=== PATIENT | female | born 1990 | race Caucasian/White ===

== ENCOUNTER 2016-11-01 03:15 | Emergency (ER) | payer MEDICAID ==
[2016-11-01 03:27] VITALS: TEMP 98.4; O2SAT 98; BMI 40.8
[2016-11-01] MEDS ORDERED: Sodium Chloride 0.9% 1,000 ML IV STA (04:10)
--- NOTE | 2016-11-01 04:24 | ED PDOC ---
Arrival/HPI - General Chief Complaint: Back Pain Time Seen by Provider: 11/01/16 04:09 Historian: Patient - History of Present Illness Narrative History of Present Illness (Text): 11/01/16 04:19 Jessica Pinedo is a 25 year old female who presents to the emergency department complaining of 2 day duration of sore throat, cough and joint pains diffusely. Patient was evaluate by PMD, Dr. Harding, yesterday for these symptoms and was started on Augmentin. However, patient states that she developed lower back pain with radiation to b/l thigh more severely 2 hours prior to arrival although she has had this for the last 2 days as well. States she took Aleve at that time for minimal relief. Also informs of increased urinary frequency for past 3 days. Denies fever, chills, headache, dizziness, nausea, vomiting, diarrhea, abdominal pain, or any other complaitns at this time. Time/Duration: < week (2 days ) Symptom Onset: Gradual Severity Level: Mild Activities at Onset: Light Past Medical History - Provider Review Nursing Documentation Reviewed: Yes - Infectious Disease Hx of Infectious Diseases: None - Tetanus Immunization Tetanus Immunization: Unknown - Past Medical History Past Medical History: No Previous - Cardiac Hx Cardiac Disorders: No - Pulmonary Hx Respiratory Disorders: No - Neurological Hx Neurological Disorder: Yes Hx Migraine: Yes Hx Seizures: Yes - HEENT Hx HEENT Disorder: No - Renal Hx Renal Disorder: No - Endocrine/Metabolic Hx Endocrine Disorders: No - Hematological/Oncological Hx Blood Disorders: No - Integumentary Hx Dermatological Disorder: No - Musculoskeletal/Rheumatological Hx Musculoskeletal Disorders: No - Gastrointestinal Hx Gastrointestinal Disorders: Yes Hx Colitis: Yes Hx Crohn's Disease: Yes - Genitourinary/Gynecological Hx Genitourinary Disorders: Yes Other/Comment: PCOS - Psychiatric Hx Psychophysiologic Disorder: No Hx Substance Use: No - Surgical History Hx Section: Yes Hx Cholecystectomy: Yes (May 2008) Other/Comment: Craniotomy on October 21, 2005 - Anesthesia Hx Anesthesia: No - Suicidal Assessment Feels Threatened In Home Enviroment: No Family/Social History - Physician Review Nursing Documentation Reviewed: Yes Family/Social History: No Known Family HX Smoking Status: Never Smoked Hx Alcohol Use: No Hx Substance Use: No Hx Substance Use Treatment: No Allergies/Home Meds Allergies/Adverse Reactions: Allergies acetaminophen [From Percocet] Allergy (Verified 11/01/16 03:21) ANAPHYLAXIS codeine Allergy (Verified 11/01/16 03:21) ANAPHYLAXIS latex Allergy (Verified 11/01/16 03:21) ITCHING morphine Allergy (Verified 11/01/16 03:21) ANAPHYLAXIS oxycodone [From Percocet] Allergy (Verified 11/01/16 03:21) ANAPHYLAXIS Home Medications: Home Meds Medication Instructions Recorded Confirmed Amoxicillin/Clavulanate [Augmentin 1 tab PO BID 11/01/16 11/01/16 875 MG-125 MG] Dicyclomine [Bentyl] 10 mg PO QID 11/01/16 11/01/16 Ergocalciferol (Vitamin D2) 50,000 unit PO QWK 11/01/16 11/01/16 [Vitamin D2] Fluticasone Propionate [Flonase] 1 spr NS BID 11/01/16 11/01/16 Levocetirizine Dihydrochloride 5 mg PO HS 11/01/16 11/01/16 [Xyzal] Mesalamine ER Cap [Pentasa] 1,000 mg PO QID 11/01/16 11/01/16 Review of Systems - Physician Review All systems were reviewed & negative as marked: Yes - Review of Systems Constitutional: Normal. absent: Fatigue, Fevers ENT: Sore Throat Respiratory: Cough. absent: SOB, Sputum Cardiovascular: Normal. absent: Chest Pain, Palpitations Gastrointestinal: Normal. absent: Abdominal Pain, Diarrhea, Nausea, Vomiting Genitourinary Female: Frequency (increased frequency ) Musculoskeletal: Back Pain (lower back pain ), Other (joint pain ) Neurological: Normal. absent: Headache, Dizziness Psychiatric: Normal Physical Exam - Physical Exam Narrative Physical Exam (Text): Constitutional: No acute distress. Head: Normocephalic. Atraumatic. Eyes: PERRL. ENT: Moist mucous membranes. No pharyngeal erythema. no exudates Neck: Supple. No stiffness Cardiovascular: mild tachycardia. Chest: No tenderness. Respiratory: Clear to auscultation bilaterally. GI: Soft. Nontender. Nondistended. Back: No CVA tenderness. Musculoskeletal: No tenderness or swelling of extremities. FROM X 4. Skin: No rash. Neurologic: Alert, no focal deficit. Vital Signs Reviewed: Yes Vital Signs Temp Pulse Resp BP Pulse Ox 11/01/16 05:19 89 16 117/56 L 98 11/01/16 03:25 98.4 F 108 H 20 123/79 98 Temperature: Afebrile Blood Pressure: Normal Pulse: Tachycardic Respiratory Rate: Normal Appearance: Positive for: Well-Appearing, Non-Toxic, Comfortable Pain Distress: None Mental Status: Positive for: Alert and Oriented X 3 Medical Decision Making ED Course and Treatment: 11/01/16 04:27 Impression: A 25 year old female who presents to the emergency department complaining of sore throat discomfort, cough, joint pain and back pain. Pt evaluated by PMD and started on Augmentin Plan: -- Labs -- IV fluids -- Urine culture -- HCG -- Urinalysis -- Reassess and disposition Progress Notes: 11/01/16 05:26 On re-evaluation, patient feels better and is in no acute distress. HR improved to 88. I have discussed the results and plan with the patient, who expresses understanding. Patient in agreement with plan to be discharged home. Patient is stable for discharge. Patient was instructed to follow up with physician or return if symptoms worsen or new concerning symptoms arise. - Lab Interpretations Lab Results: 11/01/16 04:19 11/01/16 04:19 Lab Results 11/01/16 04:19: Urine Color Yellow, Urine Appearance Slight-cloudy, Urine pH 6.0 , Ur Specific [place] 1.025, Urine Protein Negative, Urine Glucose (UA) Negative , Urine Ketones Negative, Urine Blood Moderate H, Urine Nitrate Negative, Urine Bilirubin Negative, Urine Urobilinogen 1.0 H, Ur Leukocyte Esterase Negative, Urine RBC 5 - 10, Urine WBC 0 - 2, Ur Epithelial Cells 4 - 5, Urine Bacteria Few , Urine HCG, Qual Negative 11/01/16 04:19: Sodium 139, Potassium 3.8, Chloride 102, Carbon Dioxide 25, Anion Gap 16, BUN 13, Creatinine 0.6, Est GFR ( Amer) > 60, Est GFR (Non- Af Amer) > 60, Random Glucose 94, Calcium 9.2, Total Bilirubin 1.1, AST 26, ALT 47, Alkaline Phosphatase 100, Total Protein 7.3, Albumin 4.0, Globulin 3.3, Albumin/Globulin Ratio 1.2 11/01/16 04:19: WBC 10.3, RBC 4.41, Hgb 13.4, Hct 38.9, MCV 88.2, MCH 30.4, MCHC 34.4, RDW 13.0, Plt Count 244, MPV 10.3, Gran % 78.3 H, Lymph % (Auto) 10.7 L, [place] % (Auto) 8.6 H, Eos % (Auto) 2.3, Baso % (Auto) 0.1, Gran # 8.04 H , Lymph # 1.1 L, [place] # 0.9 H, Eos # 0.2, Baso # 0.01 - Medication Orders Current Medication Orders: Discontinued Medications Sodium Chloride (Sodium Chloride 0.9%) 1,000 mls @ 999 mls/hr IV .Q1H1M STA Stop: 11/01/16 05:10 Last Admin: 11/01/16 04:33 Dose: 999 mls/hr - Scribe Statement The provider has reviewed the documentation as recorded by the Kim Collins Provider Attestation: All medical record entries made by the Kim were at my direction and personally dictated by me. I have reviewed the chart and agree that the record accurately reflects my personal performance of the history, physical exam, medical decision making, and the department course for this patient. I have also personally directed, reviewed, and agree with the discharge instructions and disposition. Disposition/Present on Arrival - Present on Arrival Any Indicators Present on Arrival: No History of DVT/PE: No History of Uncontrolled Diabetes: No Urinary Catheter: No History of Decub. Ulcer: No History Surgical Site Infection Following: None - Disposition Have Diagnosis and Disposition been Completed?: Yes Diagnosis: Myalgia Disposition: HOME/ ROUTINE Disposition Time: : Patient Plan: Discharge Condition: STABLE Discharge Instructions (ExitCare): Upper Respiratory Infection (ED)
[2016-11-01 04:39] LABS: ADD MANUAL DIFF? NO
[2016-11-01 04:41] LABS: URINE BILIRUBIN NEGATIVE (NEGATIVE); URINE BLOOD MODERATE (NEGATIVE); URINE GLUCOSE (UA) NEGATIVE (NEGATIVE); URINE KETONE NEGATIVE (NEGATIVE); URINE LEUKOCYTE ESTERASE NEGATIVE Leu/uL (NEGATIVE); URINE PROTEIN NEGATIVE mg/dL (<30 mg/dL)
[2016-11-01 04:42] LABS: BASO # 0.01 K/mm3 (0.0-2.0); BASO % 0.1 % (0.0-3.0); EOS # 0.2 (0.0-0.7); EOS % 2.3 % (1.5-5.0); GRAN # 8.04 (1.4-6.5); GRAN % 78.3 % (50.0-68.0); HEMATOCRIT 38.9 % (36.0-48.0); LYMPH # 1.1 (1.2-3.4); LYMPH % 10.7 % (22.0-35.0); MEAN CELL VOLUME 88.2 fL (80.0-105.0); MEAN CORPUSCULAR HEMOGLOBIN 30.4 pg (25.0-35.0); MEAN CORPUSCULAR HGB CONC 34.4 g/dl (31.0-37.0); MEAN PLATELET VOLUME 10.3 fl (7.0-11.0); MONO # 0.9 (0.1-0.6); MONO % 8.6 % (1.0-6.0); PLATELET COUNT 244 10^3/uL (120.0-450.0); WHITE BLOOD COUNT 10.3 10^3/ul (4.5-11.0)
[2016-11-01 04:45] LABS: URINE APPEARANCE SLIGHT-CLOUDY (CLEAR); URINE COLOR YELLOW (YELLOW)
[2016-11-01 04:52] LABS: URINE BACTERIA FEW (NEG); URINE WBC 0 - 2 /hpf (0-6)
[2016-11-01 04:53] LABS: ALB/GLOB RATIO 1.2 (1.1-1.8); ALKALINE PHOSPHATASE 100 U/L (38-133); ALT/SGPT 47 U/L (7-56); AST/SGOT 26 U/L (15-39); BILIRUBIN,TOTAL 1.1 mg/dL (0.2-1.3); BLOOD UREA NITROGEN 13 mg/dL (7-21); CALCIUM 9.2 mg/dL (8.4-10.5); CARBON DIOXIDE 25 mmol/L (21-33); CHLORIDE 102 mmol/L (98-107); GFR AFRICAN-AMERICAN > 60; GLUCOSE,RANDOM 94 mg/dL (70-110); POTASSIUM 3.8 mmol/L (3.6-5.0); SODIUM 139 mmol/L (132-148); TOTAL PROTEIN 7.3 g/dL (5.8-8.3)
[2016-11-01 05:19] VITALS: BP 117/56; PULSE 89; RESP 16
== END 2016-11-01 05:37 | disposition home or self-care (01) ==
LOC: ED 03:15
DX: M79.1 Myalgia (principal)
CPT/HCPCS: 80053; 81001; 84703; 85025; 87086; 99283; J7040

== ENCOUNTER 2017-11-11 19:03 | Emergency (ER) | payer MEDICAID ==
[2017-11-11 19:03] VITALS: BMI 40.8
[2017-11-11 19:12] VITALS: RESP 18; TEMP 98.7; O2SAT 100
[2017-11-11 20:22] LABS: BASO # 0.01 K/mm3 (0.0-2.0); BASO % 0.1 % (0.0-3.0); EOS # 0.2 (0.0-0.7); EOS % 1.4 % (1.5-5.0); GRAN # 8.63 (1.4-6.5); GRAN % 77.6 % (50.0-68.0); HEMOGLOBIN 14.8 g/dL (12.0-16.0); LYMPH # 1.8 (1.2-3.4); LYMPH % 15.8 % (22.0-35.0); MEAN CELL VOLUME 87.2 fl (80.0-105.0); MEAN CORPUSCULAR HEMOGLOBIN 30.1 pg (25.0-35.0); MEAN CORPUSCULAR HGB CONC 34.5 g/dl (31.0-37.0); MEAN PLATELET VOLUME 10.4 fl (7.0-11.0); MONO # 0.6 (0.1-0.6); MONO % 5.1 % (1.0-6.0); RBC 4.92 10^6/uL (3.5-6.1); RED CELL DISTRIBUTION WIDTH 12.9 % (11.5-14.5); URINE BILIRUBIN NEGATIVE (NEGATIVE); URINE BLOOD MODERATE (NEGATIVE); URINE GLUCOSE (UA) NEGATIVE (NEGATIVE); URINE LEUKOCYTE ESTERASE NEGATIVE Leu/uL (NEGATIVE); URINE PROTEIN NEGATIVE mg/dL (<30 mg/dL); URINE UROBILINOGEN 0.2 E.U./dL (<1 E.U./dL); WHITE BLOOD COUNT 11.1 10^3/ul (4.5-11.0)
--- NOTE | 2017-11-11 20:28 | ED PDOC ---
Arrival/HPI - General Chief Complaint: Abdominal Pain Time Seen by Provider: 11/11/17 19:29 - History of Present Illness Narrative History of Present Illness (Text): 11/11/17 20:00 Patient is a 26 year old female with a past medical history significant for Crohns disease and Celiac disease, who presents to the ED for abdominal pain that started around 6:00 this morning. Patient says she woke up with crampy, non -radiating, intermittent, 10/10 epigastric pain that lasts about 1-2 minutes at a time. Patient says it feels similar to flare ups of her Crohns disease that she has had in the past. She admits to associated nausea and 4-5 episodes of mucusy, non-bloody diarrhea. She says she tried to have some chicken salad today but it "did not agree with her". Slick sees Dr. Verduzco for her Crohns and her last EGD/Colonoscopy was August 2016. She says she has also been experiencing chills and has had a migraine since this morning which she thinks is causing her left sided neck pain that she also woke up with. Patient describes the neck pain as "pulling" in nature and is worsened by turning her head to the right or extending at the neck. Patient says pressure on the area helps relieve the pain. Patient denies fever, dysphagia, chest pain, SOB, vomiting, constipation, dysuria, frequency, hematuria, and lower extremity pain/ swelling. 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: Last EGD/Colonoscopy: August [address]: 3 months ago - showed diverticula but otherwise normal PMH: Crohns Disease (2016), Celiac Disease (2016), PCOS, Arnold Chiari Malformation with syringomyelia, epilepsy (no longer requiring treatment for the past 6 years) Meds: Pentasa 1000 mg QID, Omeprazole 20 mg, cetirizine Allergies: Codeine (anaphylaxis), morphine (anaphylaxis), latex (rash) FH: PCKD (mother, sister, and maternal aunts), HTN and HLD (mother) SH: denies tobacco, alcohol, and elicit drug use (Toyin Peña) Past Medical History - Infectious Disease Hx of Infectious Diseases: None - Tetanus Immunization Tetanus Immunization: Unknown - Past Medical History Past Medical History: No Previous - Cardiac Hx Cardiac Disorders: No - Pulmonary Hx Respiratory Disorders: No - Neurological Hx Neurological Disorder: Yes Hx Migraine: Yes Hx Seizures: Yes - HEENT Hx HEENT Disorder: No - Renal Hx Renal Disorder: No - Endocrine/Metabolic Hx Endocrine Disorders: No - Hematological/Oncological Hx Blood Disorders: No - Integumentary Hx Dermatological Disorder: No - Musculoskeletal/Rheumatological Hx Musculoskeletal Disorders: No - Gastrointestinal Hx Gastrointestinal Disorders: Yes Hx Colitis: Yes Hx Crohn's Disease: Yes - Genitourinary/Gynecological Hx Genitourinary Disorders: Yes Other/Comment: PCOS - Psychiatric Hx Psychophysiologic Disorder: No Hx Substance Use: No - Surgical History Hx Section: Yes Hx Cholecystectomy: Yes Other/Comment: Craniotomy on October 21, 2005 - Anesthesia Hx Anesthesia: No - Suicidal Assessment Feels Threatened In Home Enviroment: No Family/Social History Family/Social History: Other (PCKD) Smoking Status: Never Smoked Hx Alcohol Use: No Hx Substance Use: No Hx Substance Use Treatment: No Allergies/Home Meds Allergies/Adverse Reactions: Allergies acetaminophen [From Percocet] Allergy (Verified 11/11/17 19:18) ANAPHYLAXIS codeine Allergy (Verified 11/11/17 19:18) ANAPHYLAXIS latex Allergy (Verified 11/11/17 19:18) ITCHING morphine Allergy (Verified 11/11/17 19:18) ANAPHYLAXIS oxycodone [From Percocet] Allergy (Verified 11/11/17 19:18) ANAPHYLAXIS Home Medications: Home Meds Medication Instructions Recorded Confirmed Mesalamine ER Cap [Pentasa] 1,000 mg PO QID 11/01/16 11/11/17 Cetirizine HCl [Zyrtec] 10 mg PO DAILY 11/11/17 11/11/17 Omeprazole [Omeprazole] 20 mg PO BID 11/11/17 11/11/17 Review of Systems - Physician Review All systems were reviewed & negative as marked: Yes - Review of Systems Constitutional: Normal. absent: Fatigue, Fevers Eyes: Normal. absent: Vision Changes ENT: Normal. absent: Hearing Changes, Sore Throat Respiratory: Normal. absent: SOB, Cough, Wheezing Cardiovascular: Normal. absent: Chest Pain, Palpitations, Edema, Calf Pain Gastrointestinal: Abdominal Pain, Diarrhea, Nausea. absent: Constipation, Vomiting, Hematochezia, Hematemesis Genitourinary Female: Normal. absent: Dysuria, Frequency, Hematuria Musculoskeletal: Neck Pain. absent: Arthralgias, Back Pain Skin: Normal. absent: Rash Neurological: Headache. absent: Dizziness Physical Exam Temperature: Afebrile Blood Pressure: Normal Pulse: Tachycardic Respiratory Rate: Normal Appearance: Positive for: Well-Appearing, Non-Toxic, Comfortable Pain Distress: Moderate Mental Status: Positive for: Alert and Oriented X 3 - Systems Exam Head: Present: Atraumatic, Normocephalic Pupils: Present: PERRL Extroacular Muscles: Present: EOMI Conjunctiva: Present: Normal Mouth: Present: Moist Mucous Membranes Pharnyx: Present: Normal. No: ERYTHEMA Neck: Present: Normal Range of Motion (pain with right rotation and extension), Paraspinal Tenderness (left). No: MIDLINE TENDERNESS Respiratory/Chest: Present: Clear to Auscultation, Good Air Exchange. No: Respiratory Distress, Accessory Muscle Use Cardiovascular: Present: Regular Rate and Rhythm, Normal S1, S2. No: Murmurs Abdomen: Present: Tenderness (epigastric), Normal Bowel Sounds. No: Distention , Peritoneal Signs, Rebound, Guarding Back: Present: Normal Inspection Upper Extremity: Present: Normal Inspection. No: Cyanosis, Edema Lower Extremity: Present: Normal Inspection. No: Edema, CALF TENDERNESS Neurological: Present: GCS=15, Speech Normal Skin: Present: Warm, Dry, Normal Color. No: Rashes Psychiatric: Present: Alert, Oriented x 3, Normal Insight, Normal Concentration Vital Signs Temp Pulse Resp BP Pulse Ox 11/11/17 23:14 95 H 18 132/72 100 11/11/17 19:11 98.7 F 100 H 18 139/88 100 Medical Decision Making ED Course and Treatment: 11/11/17 20:37 Will order routine lab work, HCG, UA, CT Abd/Pel and follow up. Gave Toradol and Zofran for pain and nausea. Will reassess. Patient discussed with Dr. Mauro who agrees with plan. 11/11/17 20:43 Urine test negative. UA shows blood in the urine. 11/11/17 21:08 Labs show leukocytosis and transaminitis. 11/11/17 23:08 CT abdomen and pelvis: FINDINGS: LIMITATIONS: Mild streak/motion artifact. LUNG BASES: No significant abnormality seen. ABDOMEN: LIVER: Fatty infiltration of the liver. Hepatomegaly, with the liver measuring 21 cm in length on the coronal images. GALLBLADDER AND BILE DUCTS: Cholecystectomy clips. No evidence of significant biliary ductal dilatation. PANCREAS: No CT evidence of acute pancreatitis. SPLEEN: Mild splenomegaly, with the spleen measuring 14 cm in length. ADRENALS: No acute abnormality of the adrenal glands identified. KIDNEYS AND URETERS: No acute abnormality of the kidneys identified. No evidence of significant hydrouereteronephrosis. STOMACH AND BOWEL: No acute abnormality of the stomach, small bowel or colon identified. No evidence of bowel obstruction. Unremarkable appearance of the terminal ileum. No evidence of significant enteritis or colitis. PELVIS: APPENDIX: Normal appendix is not seen, however, there are no significant inflammatory changes visualized in the expected location of the appendix to suggest appendicitis. Recommend clinical correlation. BLADDER: No acute abnormality of the bladder identified. REPRODUCTIVE: Suspect a small 2.6 cm left ovarian/adnexal cystic lesion. This has a benign appearance by CT. No followup is warranted based on the imaging findings, unless otherwise clinically indicated. No evidence of significant right adnexal masses. No acute abnormality of the uterus identified. ABDOMEN and PELVIS: INTRAPERITONEAL SPACE: No evidence of free intraperitoneal air or fluid. BONES/JOINTS: No acute fractures or other acute bony abnormality noted. SOFT TISSUES: No acute abnormality of the visualized soft tissues is seen. VASCULATURE: No evidence of abdominal aortic aneurysm. No evidence of periaortic hemorrhage. LYMPH NODES: No evidence of diffuse lymphadenopathy. IMPRESSION: - No evidence of significant acute process. Appendix is not seen, however. - See above for remaining findings. (Toyin Peña) Seen and examined with resident. 26 year old f p/w abdominal pain. Abdomen diffusely tender. CT negative for any acute pathology. (Albino Mauro) - Lab Interpretations Lab Results: 11/11/17 20:14 11/11/17 20:14 Lab Results 11/11/17 20:14: Sodium 144, Potassium 3.9, Chloride 101, Carbon Dioxide 27, Anion Gap 20, BUN 13, Creatinine 0.7, Est GFR ( Amer) > 60, Est GFR (Non- Af Amer) > 60, Random Glucose 89, Calcium 9.5, Total Bilirubin 1.1, AST 53 H, ALT 69 H, Alkaline Phosphatase 95, Total Protein 8.2, Albumin 4.8, Globulin 3.4 , Albumin/Globulin Ratio 1.4, Lipase 98 11/11/17 20:14: Urine Color Yellow, Urine Appearance Sl cloudy, Urine pH 6.0, Ur Specific [place] 1.025, Urine Protein Negative, Urine Glucose (UA) Negative, Urine Ketones Negative, Urine Blood Moderate H, Urine Nitrate Negative, Urine Bilirubin Negative, Urine Urobilinogen 0.2, Ur Leukocyte Esterase Negative, Urine RBC 2 - 5, Urine WBC 0 - 2, Ur Epithelial Cells 0 - 2, Urine Bacteria Few , Urine HCG, Qual Negative 11/11/17 20:14: WBC 11.1 H, RBC 4.92, Hgb 14.8, Hct 42.9, MCV 87.2, MCH 30.1, MCHC 34.5, RDW 12.9, Plt Count 295, MPV 10.4, Gran % 77.6 H, Lymph % (Auto) 15.8 L, [place] % (Auto) 5.1, Eos % (Auto) 1.4 L, Baso % (Auto) 0.1, Gran # 8.63 H , Lymph # (Auto) 1.8, [place] # (Auto) 0.6, Eos # (Auto) 0.2, Baso # (Auto) 0.01 - RAD Interpretation Radiology Orders: 11/11/17 19:53 ABD & PELVIS IV CONTRAST ONLY [CT] Stat - Medication Orders Current Medication Orders: Discontinued Medications Al Hydrox/Mg Hydrox/Simethicone (Maalox Plus 30 Ml) 30 ml PO STAT STA Stop: 11/11/17 22:21 Last Admin: 11/11/17 22:42 Dose: 30 ml Famotidine (Pepcid) 40 mg PO STAT STA Stop: 11/11/17 22:21 Last Admin: 11/11/17 22:42 Dose: 40 mg Ketorolac Tromethamine (Toradol) 30 mg IVP STAT STA Stop: 11/11/17 19:59 Last Admin: 11/11/17 20:14 Dose: 30 mg MAR Pain Assessment Document 11/11/17 20:14 AD (Rec: 11/11/17 20:14 AD [email or web address] Pain Reassessment Is this a pain reassessment? No Presence of Pain Presence of Pain Yes Pain Scale Used Pain Scale Used Numeric Description Intensity of Pain at present 8 Pain Behavior Facial Grimacing IVP Administration Document 11/11/17 20:14 AD (Rec: 11/11/17 20:14 AD [id number] Charges for Administration # of IVP Administrations 1 Ondansetron HCl (Zofran Inj) 4 mg IVP STAT STA Stop: 11/11/17 19:54 Last Admin: 11/11/17 20:14 Dose: 4 mg IVP Administration Document 11/11/17 20:14 AD (Rec: 11/11/17 20:14 AD [id number] Charges for Administration # of IVP Administrations 1 Simethicone (Mylicon Chew Tab) 80 mg PO PCHS PRN PRN Reason: GI distress - PA / IT COORDINATOR / Resident Statement MD/DO has reviewed & agrees with the documentation as recorded. MD/DO has examined the patient and agrees with the treatment plan. Disposition/Present on Arrival - Present on Arrival Any Indicators Present on Arrival: No History of DVT/PE: No History of Uncontrolled Diabetes: No Urinary Catheter: No History of Decub. Ulcer: No History Surgical Site Infection Following: None - Disposition Have Diagnosis and Disposition been Completed?: Yes Disposition Time: 23:10 Patient Plan: Discharge - Disposition Diagnosis: Crohn disease, Diarrhea Disposition: HOME/ ROUTINE Condition: STABLE Discharge Instructions (ExitCare): Crohn's Disease in Adults Additional Instructions: Please follow up with your primary care physician and spring tester by the end of this week. If you experience any new or worsening symptoms, please return to the Emergency Department. Forms: [facility] (Setswana), WORK NOTE
[2017-11-11 20:35] LABS: HCG,QUALITATIVE URINE NEGATIVE (NEGATIVE); URINE COLOR YELLOW (YELLOW)
[2017-11-11 20:36] LABS: URINE APPEARANCE SL CLOUDY (CLEAR)
[2017-11-11 20:50] LABS: ALB/GLOB RATIO 1.4 (1.1-1.8); ALBUMIN 4.8 g/dL (3.0-4.8); ALT/SGPT 69 U/L (7-56); AST/SGOT 53 U/L (14-36); BLOOD UREA NITROGEN 13 mg/dL (7-21); CALCIUM 9.5 mg/dL (8.4-10.5); GFR AFRICAN-AMERICAN > 60; GFR NON-AFRICAN AMERICAN > 60; LIPASE 98 U/L (23-300)
[2017-11-11] MEDS ORDERED: Iohexol 350 MG/100 ML VIAL ONE (20:58)
[2017-11-11 21:31] LABS: URINE WBC 0 - 2 /hpf (0-6)
[2017-11-11 21:32] LABS: URINE BACTERIA FEW (NEG); URINE EPITHELIAL CELLS 0 - 2 /hpf (0-5)
[2017-11-11] MEDS ORDERED: Simethicone 80 mg Chewtab PO PRN (22:20)
[2017-11-11] MEDS ORDERED: Alum-Mag Hydrox-Simethicone Susp (30 mL) PO STA (22:20)
--- NOTE | 2017-11-11 23:02 | CT ---
EXAM: CT Abdomen and Pelvis With Intravenous Contrast EXAM DATE/TIME: 11/11/2017 7:53 PM CLINICAL HISTORY: 26 years old, female; Pain; Abdominal pain; Acute; Additional info: Abdominal pain, crohns disease TECHNIQUE: Axial computed tomography images of the abdomen and pelvis with intravenous contrast. All CT scans at this facility use one or more dose reduction techniques, viz.: automated exposure control; ma/kV adjustment per patient size (including targeted exams where dose is matched to indication; i.e. head); or iterative reconstruction technique. Coronal and sagittal reformatted images were created and reviewed. CONTRAST: 100 mL of OMNI 350 administered intravenously. COMPARISON: No relevant prior studies available. FINDINGS: LIMITATIONS: Mild streak/motion artifact. LUNG BASES: No significant abnormality seen. ABDOMEN: LIVER: Fatty infiltration of the liver. Hepatomegaly, with the liver measuring 21 cm in length on the coronal images. GALLBLADDER AND BILE DUCTS: Cholecystectomy clips. No evidence of significant biliary ductal dilatation. PANCREAS: No CT evidence of acute pancreatitis. SPLEEN: Mild splenomegaly, with the spleen measuring 14 cm in length. ADRENALS: No acute abnormality of the adrenal glands identified. KIDNEYS AND URETERS: No acute abnormality of the kidneys identified. No evidence of significant hydrouereteronephrosis. STOMACH AND BOWEL: No acute abnormality of the stomach, small bowel or colon identified. No evidence of bowel obstruction. Unremarkable appearance of the terminal ileum. No evidence of significant enteritis or colitis. PELVIS: APPENDIX: Normal appendix is not seen, however, there are no significant inflammatory changes visualized in the expected location of the appendix to suggest appendicitis. Recommend clinical correlation. BLADDER: No acute abnormality of the bladder identified. REPRODUCTIVE: Suspect a small 2.6 cm left ovarian/adnexal cystic lesion. This has a benign appearance by CT. No followup is warranted based on the imaging findings, unless otherwise clinically indicated. No evidence of significant right adnexal masses. No acute abnormality of the uterus identified. ABDOMEN and PELVIS: INTRAPERITONEAL SPACE: No evidence of free intraperitoneal air or fluid. BONES/JOINTS: No acute fractures or other acute bony abnormality noted. SOFT TISSUES: No acute abnormality of the visualized soft tissues is seen. VASCULATURE: No evidence of abdominal aortic aneurysm. No evidence of periaortic hemorrhage. LYMPH NODES: No evidence of diffuse lymphadenopathy. IMPRESSION: - No evidence of significant acute process. Appendix is not seen, however. - See above for remaining findings.
[2017-11-11 23:29] VITALS: BP 132/72; PULSE 95
== END 2017-11-11 23:14 | disposition home or self-care (01) ==
LOC: ED 19:03
DX: K50.90 Crohn's disease, unspecified, without complications (principal); R19.7 Diarrhea, unspecified; K90.0 Celiac disease
CPT/HCPCS: 74177; 80053; 81001; 83690; 84703; 85025; 96374; 96375; 99283; J1885; J2405; Q9967